=== PATIENT | female | born 1975 | race Caucasian/White ===

== ENCOUNTER 2017-12-06 17:05 | Inpatient (IN) | payer SELFPAY ==
[~2017-12-06] VITALS: Ht 160 cm; Wt 59.0 kg
[2017-12-06 17:08] VITALS: BP 151/100
[2017-12-06] MEDS ORDERED: NITROGLYCERIN 2% 1 GM PKT TP ONE (17:10)
--- NOTE | 2017-12-06 17:31 | NUR ---
X RAY AT BEDSIDE
--- NOTE | 2017-12-06 17:32 | NUR ---
42 /F BIBA FROM [place] [employer] FOR CHEST PAIN AWAKE AND ALERT ON ARRIVAL. DENIES N/V/D; AAOX4 WITH EVEN AND STEADY GAIT; LUNGS CLEAR BL; PT DENIES ANY FEVER,SOB, OR COUGH AT THIS TIME; PATIENT STATES PAIN OF 8/10 AT THIS TIME; PATIENT POSITIONED FOR COMFORT; HOB ELEVATED; BEDRAILS UP X2; BED DOWN. ER MD MADE AWARE OF PT STATUS.
[2017-12-06 18:27] LABS: WHITE BLOOD COUNT (AUTO) 5.8 K/uL (4.8-10.8)
[2017-12-06 18:28] LABS: BASOPHILS % (AUTO) 0.5 % (0.0-2.0); CARBON DIOXIDE 22.7 mmol/L (21-32); CREATININE 0.9 mg/dL (0.6-1.3); EOSINOPHILS % (AUTO) 0.2 % (0.0-4.0); HEMATOCRIT 37.7 % (36-48); HEMOGLOBIN 12.6 g/dL (12.0-16.0); LYMPHOCYTES % (AUTO) 20.5 % (20.5-51.1); MEAN CORPUSCULAR HEMOGLOBIN 32 pg (27-31); MEAN CORPUSCULAR HGB CONC 33 g/dL (33-37); MEAN CORPUSCULAR VOLUME 95 fL (80-94); MONOCYTES % (AUTO) 7.4 % (1.7-9.3); NEUTROPHILS % (AUTO) 71.4 % (42.2-75.2); PLATELET COUNT (AUTO) 236 K/uL (140-450); POTASSIUM 3.7 mmol/L (3.5-5.1); RED BLOOD CELL COUNT(AUTO) 3.96 MIL/uL (4.20-5.40); RED CELL DISTRIBUTION WIDTH 13.4 % (11.6-13.7)
[2017-12-06 18:29] LABS: LYMPHOCYTES # (AUTO) 1.2 K/uL (2.5-16.5); MONOCYTES # (AUTO) 0.4 K/uL (0.8-1.0); NEUTROPHILS # (AUTO) 4.1 K/uL (1.8-7.7)
[2017-12-06 18:33] LABS: ALBUMIN 3.4 g/dL (3.4-5.0); TOTAL BILIRUBIN 0.5 mg/dL (0.0-1.0)
[2017-12-06 18:42] LABS: CREATINE KINASE MB 2.3 ng/mL (0-3.6)
[2017-12-06 18:47] LABS: CHOL/HDL RATIO 2.5 (1-4.5)
[2017-12-06 18:57] LABS: BARBITURATE, URINE NEG. ng/ml (NEG <=200); BENZODIAZEPINE, URINE NEG. ng/mL (NEG <=200); CANNABINOID, URINE NEG. ng/mL (NEG <=50); COCAINE, URINE NEG. ng/mL (NEG <=300); OPIATE, URINE NEG. ng/mL (NEG <=2000); PHENCYCLIDINE SCREEN,URINE NEG. ng/mL (NEG <=25)
[2017-12-06] MEDS ORDERED: NACL 0.9% 1,000 ML IV SCH (19:06)
--- NOTE | 2017-12-06 19:07 | NUR ---
Pt report given to BARBARA HOFFMAN. Transfer of care at this time.
[2017-12-06] MEDS ORDERED: HYDROcodone/APAP 7.5/325 MG 1 TAB PO PRN (19:10)
[2017-12-06] MEDS ORDERED: ONDANSETRON 4 MG/2 ML VIAL IM/IVP PRN (19:10)
[2017-12-06] MEDS ORDERED: MORPHINE SULFATE 2 MG/ML SYR IVP PRN (19:10)
[2017-12-06] MEDS ORDERED: DOCUSATE SODIUM 100 MG GELCAP PO PRN (19:10)
[2017-12-06] MEDS ORDERED: ACETAMINOPHEN 325 MG TAB PO PRN (19:10)
[2017-12-06] MEDS ORDERED: NITROGLYCERIN 0.4 MG TAB SL PRN (19:25)
--- NOTE | 2017-12-06 19:45 | NUR ---
Patient will be admitted to care of DR EARL. Admited to TELE. Will go to room 11A. Belongings list completed. BEDSIDE Report to YUE JIMENEZ. IV SL AND PATENT
--- NOTE | 2017-12-06 19:50 | NUR ---
ADMITTED A 42F FROM ER. CAME BY JOSE A . CAME DUE TO C/O CHEST PAIN . AWAKE,ALERT AND ORIENTED X4. ON TELE MONITOR -SR. AMBULATORY. ORIENTED TO HOSPITAL ROUTINES. PLAN OF CARE DISCUSSED AND VERBALIZED UNDERSTANDING. SKIN INTACT . HL ON THE RT HAND #[id number]. CLEAR AND PATENT. DENIES PAIN AT THIS TIME. PLAN OF CARE DISCUSSED AND VERBALIZED UNDERSTANDING. CALL LIGHT PLACED WITHIN EASY REACH. WILL CONTINUE TO MONITOR.
[2017-12-06 19:55] VITALS: BP_SYST 118; BP_SYST 138; BP_DIAS 55; BP_DIAS 84
[2017-12-06 19:55] LABS: APPEARANCE,URINE SL CLOUDY (CLEAR); BILIRUBIN,URINE NEGATIVE (NEGATIVE); BLOOD, URINE 1+ (NEGATIVE); COLOR,URINE YELLOW (YELLOW); LEUKOCYTE ESTERASE ,URINE TRACE (NEGATIVE); NITRITE, URINE POSITIVE (NEGATIVE); UGLUCOSE NEGATIVE (NEGATIVE)
[2017-12-06 20:02] VITALS: BP 137/89
[2017-12-06 20:09] LABS: RBC,URINE 3-10 (FEW) /HPF (0-5); WBC,URINE 20-60 /HPF (0-5)
[2017-12-06 20:11] LABS: CHOL/HDL RATIO 2.4 (1-4.5); FREE T4 (FREE THYROXINE) 1.01 ng/dL (0.76-1.46); MAGNESIUM 1.9 mg/dL (1.8-2.4); PHOSPHORUS 2.5 mg/dL (2.5-4.9); THYROID STIMULATING HORMONE 0.8 uIU/mL (0.34-3.74)
--- NOTE | 2017-12-06 20:40 | NUR ---
CAME TO SEE PT. GAVE PT SOME SANDWICH AND JUICE.
[2017-12-06] MEDS ORDERED: CARVEDILOL 3.125 MG TAB PO SCH (21:00)
[2017-12-06] MEDS ORDERED: SIMVASTATIN 20 MG TAB PO SCH (21:00)
--- NOTE | 2017-12-06 22:04 | NUR ---
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
--- NOTE | 2017-12-07 07:35 | NUR ---
CALLED [employer] AND ABLE TO TALKED TO PAWAN. REPORTED TO THEM THAT WE HAVE FOUND THE TELEMETRY BOX MONITOR ALREADY AND WE ARE CANCELING THE REPORT THAT WAS DONE LAST NIGHT .
[2017-12-07] MEDS ORDERED: LISINOPRIL 10 MG TAB PO SCH (09:00)
[2017-12-07] MEDS ORDERED: ASPIRIN 81 MG TAB.CHEW PO SCH (09:00)
[2017-12-07 15:33] LABS: T4 (THYROXINE) 6.2 ug/dL (4.5-12.0)
--- NOTE | 2017-12-07 15:48 | NUR ---
ECHO CANCELLED. PT LEFT AMA.
== END 2017-12-06 21:12 | disposition left against medical advice (07) | DRG 311 ==
LOC: MED 17:05 → MTU 19:16
PROVIDERS: ADMIT Family Medicine; ATTEND Family Medicine
DX: I24.9 Acute ischemic heart disease, unspecified (principal); I50.43 Acute on chronic combined systolic (congestive) and diastolic (congestive) heart failure; N39.0 Urinary tract infection, site not specified; I11.0 Hypertensive heart disease with heart failure; Z53.21 Procedure and treatment not carried out due to patient leaving prior to being seen by health care provider; I25.10 Atherosclerotic heart disease of native coronary artery without angina pectoris; E78.5 Hyperlipidemia, unspecified; F15.10 Other stimulant abuse, uncomplicated; I25.2 Old myocardial infarction
CPT/HCPCS: 36415; 71045; 80053; 80305; 81001; 82150; 82550; 82553; 83036; 83690; 83735; 83880; 84100; 84436; 84439; 84443; 84484; 85025; 85379; 85610; 85730; 87081; 87086; 87186; 93005; 99291